=== PATIENT | female | born 1975 | race Native Hawaiian/Other Pacific Islander ===

== ENCOUNTER 2016-07-30 03:26 | Outpatient (CLI) | payer BC, MEDICAID ==
[2016-07-30 03:47] VITALS: BP 117/56
[2016-07-30] MEDS ORDERED: ALUM-MAG HYDROX-SIMETH 200-200-20MG/5ML PO ONE (04:10)
== END 2016-07-30 04:45 | disposition home or self-care (01) ==
LOC: TRG 03:26
PROVIDERS: ATTEND Obstetrics & Gynecology
DX: O09.523 Supervision of elderly multigravida, third trimester (principal); O26.893 Other specified pregnancy related conditions, third trimester; R10.9 Unspecified abdominal pain; Z3A.32 32 weeks gestation of pregnancy
CPT/HCPCS: 59025

== ENCOUNTER 2016-09-15 20:22 | Outpatient (CLI) | payer MEDICAID ==
[2016-09-15 21:15] VITALS: BP 113/67
[2016-09-15 22:05] LABS: Bilirubin,Urine NEG (Negative); Blood,Urine SM (Negative); Ketones,Urine NEG (Negative); Leukocyte Esterase,Urine NEG (Negative); Mucus,Urine FEW /HPF; Nitrite,Urine NEG (Negative); Urobilinogen,Urine < 2.0 mg/dL (<2.0)
--- NOTE | 2016-09-15 23:07 | Ultrasound Report ---
FINAL REPORT PROCEDURE: US OB LIMITED TECHNIQUE: Real-time limited sonographic examination was performed for evaluation of size, position, heartbeat, fluid volume for each fetus with image documentation (1 or more fetuses). CPT 39504 HISTORY: bleeding. . COMPARISON: No prior studies are available for comparison. FINDINGS: There is a single living intrauterine gestation visualized currently in the vertex presentation with a heart rate of 135 beats per minute. Subjectively the amount of amniotic fluid appears normal. The amniotic fluid index is normal measuring 10.6 centimeter. The placenta is located posterior and is grade 2. Visualized portion of the placenta shows no evidence of abruption. The internal cervical os was not demonstrated on this exam. The head obscures the cervix. If further evaluation of the cervical os is clinically indicated consider follow-up transvaginal scanning. Detailed exam of the fetus was not performed. Biophysical profile score was obtained yelling a score of 8/8. measurements were not obtained today. IMPRESSION: Single living intrauterine gestation currently visualize vertex presentation. Subjectively and by amniotic fluid index the amount of amniotic fluid appears normal. Grade 2 placenta is visualized posteriorly. Visualized portions of the placenta show no evidence of abruption. Please see above comments. Cervix was not visualized as it was obscured by the foetal head. Biophysical profile score was obtained yelling a score of 8/8. Further evaluation was neither requested nor performed.
--- NOTE | 2016-09-16 04:02 | Ultrasound Report ---
FINAL REPORT EXAM: US OB BPP W/O NON-STRESS HISTORY: Bleeding. TECHNIQUE: Directed limited transabdominal ultrasound examination of the gravid pelvis was performed. No prior studies are available for comparison. FINDINGS: The patient reports her last menstrual period 12/18/2015. There is a single live intrauterine gestation, in cephalic presentation. The placenta is located posteriorly. cardiac activity is identified, with a heart rate of 133 beats per minute. The amniotic fluid index measures 10.6 cm, within normal limits. The biophysical profile is 09/14. IMPRESSION: 1. Single live intrauterine gestation. 2. Biophysical profile 09/14.
== END 2016-09-15 22:45 | disposition home or self-care (01) ==
LOC: TRG 20:22
PROVIDERS: ATTEND Obstetrics & Gynecology
DX: O46.93 Antepartum hemorrhage, unspecified, third trimester (principal); Z3A.38 38 weeks gestation of pregnancy
CPT/HCPCS: 59025; 76815; 76819; 81001

== ENCOUNTER 2016-09-16 03:58 | Inpatient (IN) | payer MEDICAID ==
[2016-09-16] MEDS ORDERED: LACTATED RINGERS 1,000 ML ONE (05:08)
[2016-09-16] MEDS ORDERED: STADOL IV PRN (05:26)
[2016-09-16] MEDS ORDERED: PITOCin/NS 20 UNIT/1000ML DRIP 20 UNITS/1,000 ML BAG IV SCH ×2 (06:00→08:00)
[2016-09-16 06:02] LABS: Basophils % (Auto) 0.5 % (0.0-1.8); Eosinophils % (Auto) 1.7 % (0.0-4.3); Hematocrit 36.7 % (30.3-42.9); Hemoglobin 12.2 gm/dl (10.1-14.3); Mean Corpuscular HGB Conc 33 % (30-34); Mean Corpuscular Hemoglobin 30 pg (28-32); Mean Corpuscular Volume 91 fl (79-97); Platelet Count 131 K/mm3 (140-440); Red Blood Count 4.05 M/mm3 (3.65-5.03); Red Cell Distribution Width 14.3 % (13.2-15.2); White Blood Count 10.2 K/mm3 (4.5-11.0)
[2016-09-16 06:24] LABS: Alanine Aminotransferase 13 units/L (7-56); Lactate Dehydrogenase 203 units/L (91-180); Uric Acid 5.6 mg/dL (3.5-7.6)
[2016-09-16] MEDS: LACTATED RINGERS 1,000 ML IV SCH ×2 (06:36→07:46)
--- NOTE | 2016-09-16 07:26 | History and Physical Report ---
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 Review of chart however shows elevated blood pressure in the severe range. HELLP labs obtained shows thrombocytopenia, no UA available. Patient denies headache scotomata or epigastric pain. She is status post for her first delivery, followed by 2 successive successful VBACs. She had elevated blood pressure for her first , the subsequent 2 pregnancies were unremarkable. She claims to have been seeing a physician in between her pregnancies and no reported elevated blood pressure. course was unremarkable per patient, she passed her 1 hour GTT screening In triage, patient is said to be 4-5 cm dilated. 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 denies: smoking, alcohol abuse, prescription drug abuse, IV drug use - Obstetrical History Expected Date of Delivery: 09/23/16 Actual Gestation: 39 Week(s) 0 Day(s) : 4 Para: 3 Medications and Allergies Allergies Allergy/AdvReac Type Severity Reaction Status Date / Time No Known Allergies Allergy Verified 07/30/16 04:11 Home Medications Medication Instructions Recorded Confirmed Last Taken Type Vit-Fe Fumar-FA [ 1 tab PO QDAY 09/15/16 09/16/16 09/16/16 History Vitamin] Active Meds: Active Medications Butorphanol Tartrate (Stadol) 2 mg IV Q2H PRN PRN Reason: Labor Pain Last Admin: 09/16/16 06:24 Dose: 1 mg Hydralazine HCl (Apresoline) 5 mg IV Q30MIN PRN PRN Reason: Hypertension Lactated Ringer's (Lactated Ringers) 1,000 mls @ 125 mls/hr IV DIRECT BERNY Last Admin: 09/16/16 06:36 Dose: 125 mls/hr Oxytocin/Sodium Chloride (Pitocin/Ns 20 Unit/1000ml Drip) 20 units in 1,000 mls @ 0 mls/hr IV DIRECT BERNY PRN Reason: As Directed Magnesium Sulfate (Magnesium Sulfate 40gm/1000ml) 1,000 mls @ 50 mls/hr IV TITR NR PRN Reason: 2 GM/HR Magnesium Sulfate (Magnesium Sulfate 4gm/100ml) 4 gm in 100 mls @ 300 mls/hr IV ONCE ONE Stop: 09/16/16 07:49 Labetalol HCl (Normodyne) 200 mg PO BID BERNY Review of Systems Constitutional: no weight gain, no fever, no sweats, no chronic pain Ears, nose, mouth and throat: no headache Cardiovascular: high blood pressure, no chest pain, no syncope, no lightheadedness, no shortness of breath, no dyspnea on exertion, no paroxysmal nocturnal dyspnea Respiratory: no cough with sputum, no shortness of breath, no dyspnea on exertion Gastrointestinal: no abdominal pain, no nausea, no vomiting Genitourinary: no vaginal bleeding, no vaginal discharge, no leakage of fluid - Vital Signs Vital signs: Vital Signs Pulse BP Pulse Ox 63 140/80 99 09/16/16 04:09 09/16/16 04:09 09/16/16 04:09 Temp Pulse Resp BP Pulse Ox 97.6 F 74 20 189/94 98 09/16/16 04:12 09/16/16 07:15 09/16/16 04:12 09/16/16 07:14 09/16/16 07:15 - Physical Exam Cardiovascular: Regular rate, Normal S1, Normal S2 Lungs: Positive: Clear to auscultation, Normal air movement Abdomen: Positive: normal appearance, soft. Negative: distention, tenderness, guarding, rigidity Uterus: Positive: enlarged (EFW ~ 3800). Negative: tender Extremities: Positive: normal - Obstetrical FHR: category 1 Cervical Dilatation: 4.5 (Per RN) Results Result Diagrams: 09/16/16 05:25 09/16/16 05:25 Abnormal lab results 09/16/16 09/16/16 Range/Units 05:25 05:25 Plt Count 131 L (140-440) K/mm3 Pender % (Auto) 8.5 H (0.0-7.3) % Pender # 0.9 H (0.0-0.8) K/mm3 Seg Neutrophils % 70.1 H (40.0-70.0) % Creatinine 0.5 L (0.7-1.2) mg/dL Lactate Dehydrogenase 203 H (91-180) units/L All other labs normal. Assessment and Plan A: 40-year-old at 39 weeks in labor -Cat 1 tracing Issues -Severe range blood pressures ?Pre-E -Successful x 2 P: -Admit -Start magnesium, labetalol and IV antihypertensives -Will start augmentation -Epidural when necessary -Anticipate normal vaginal delivery - Patient Problems (1) 39 weeks gestation of Current Visit: Yes Status: Acute (2) Hypertension affecting in third trimester Current Visit: Yes Status: Acute (3) Active labor at term Current Visit: Yes Status: Acute
[2016-09-16] MEDS ORDERED: APRESOLINE IV PRN (07:30)
[2016-09-16] MEDS ORDERED: MAGNESIUM SULFATE 4GM/100ML 4 GM/100 ML BAG IV ONE (07:30)
[2016-09-16] MEDS ORDERED: ZOFRAN IV PRN (08:00)
[2016-09-16] MEDS ORDERED: ePHEDrine SULFATE IV PRN ×2 (08:00→09:11)
[2016-09-16] MEDS ORDERED: PITOCin/NS 30 UNIT/500ML 30 UNITS/500 ML BAG IV SCH ×2 (08:00)
[2016-09-16] MEDS ORDERED: SUBLIMAZE IV PRN (08:00)
[2016-09-16] MEDS ORDERED: XYLOCAINE 2% INFILTRATI ONE (08:00)
[2016-09-16] MEDS ORDERED: LACTATED RINGERS 1,000 ML IV SCH ×2 (08:00→23:00)
[2016-09-16] MEDS ORDERED: MINERAL OIL PO PRN (08:00)
[2016-09-16] MEDS ORDERED: MAGNESIUM SULFATE 40GM/1000ML 40 GM/1,000 ML BAG IV SCH ×2 (08:00→17:00)
[2016-09-16] MEDS ORDERED: POLYCILLIN/NS 2 GM/100 ML 2 GM/100 ML BAG IV ONE (08:30)
[2016-09-16] MEDS ORDERED: BRETHINE IVP PRN (08:30)
[2016-09-16] MEDS ORDERED: BRETHINE SUB-Q PRN (08:30)
--- NOTE | 2016-09-16 09:11 | Anesthesia Consultation ---
Anesthesia Consult and Med Hx Date of service: 09/16/16 - Airway Anesthetic Teeth Evaluation: Good ROM Head & Neck: Adequate Mental/Hyoid Distance: Adequate Intubation Access Assessment: Probably Good - Pre-Operative Health Status ASA Pre-Surgery Classification: ASA2 Proposed Anesthetic Plan: Epidural, Spinal - Pulmonary Hx Asthma: No COPD: No Hx Pneumonia: No - Cardiovascular System Hx Hypertension: No - Central Nervous System Hx Seizures: No Hx Psychiatric Problems: No - Endocrine Hx Renal Disease: No Hx End Stage Renal Disease: No Hx Hypothyroidism: No Hx Hyperthyroidism: No - Hematic Hx Anemia: No Hx Sickle Cell Disease: No - Other Systems Hx Alcohol Use: No
[2016-09-16] MEDS ORDERED: NARCAN 2 MG/2 ML IV PRN (09:30)
[2016-09-16] MEDS ORDERED: NORMODYNE PO SCH (10:00)
[2016-09-16] MEDS ORDERED: fentaNYL-BUPIV 2 MCG/ML-0.125% 200 MCG/100 ML BAG EPIDURAL SCH (10:00)
[2016-09-16] MEDS ORDERED: XYLOCAINE MPF 2% ONE (10:02)
--- NOTE | 2016-09-16 10:10 | Progress Note ---
Assessment and Plan A: IUP at 39 Weeks Category II Tracing Preeclampsia GBS Negative P: Continue MagSO4 Continue Pitocin Augmenation AROM Internals X2 Subjective - Subjective Date of service: 09/16/16 Patient reports: movement normal, contractions, other (Complains of only slight pain relief from epidural; Denies HAs, Visual changes, edema, and nausea. Complians of a slight amount of dizziness) Objective - Vital Signs Vital Signs: Vital Signs - 12hr 09/16/16 09/16/16 09/16/16 04:09 04:12 04:14 Temperature 97.6 F Pulse Rate 68 71 69 Respiratory 20 Rate Blood Pressure 140/80 140/80 142/82 O2 Sat by Pulse 99 98 98 Oximetry 09/16/16 09/16/16 09/16/16 04:19 04:25 04:26 Temperature Pulse Rate 71 71 69 Respiratory Rate Blood Pressure 161/79 O2 Sat by Pulse 96 99 Oximetry 09/16/16 09/16/16 09/16/16 04:30 04:44 04:56 Temperature Pulse Rate 71 68 68 Respiratory Rate Blood Pressure 177/80 164/76 O2 Sat by Pulse 96 Oximetry 09/16/16 09/16/16 09/16/16 05:06 05:15 06:08 Temperature Pulse Rate 68 67 67 Respiratory Rate Blood Pressure 151/70 144/71 167/80 O2 Sat by Pulse Oximetry 09/16/16 09/16/16 09/16/16 07:13 07:14 07:15 Temperature Pulse Rate 75 82 74 Respiratory Rate Blood Pressure 194/92 189/94 O2 Sat by Pulse 98 Oximetry 09/16/16 09/16/16 09/16/16 07:42 07:43 07:45 Temperature Pulse Rate 74 72 69 Respiratory Rate Blood Pressure 189/94 165/78 O2 Sat by Pulse 95 94 Oximetry 09/16/16 09/16/16 09/16/16 07:47 07:52 07:54 Temperature Pulse Rate 74 76 75 Respiratory Rate Blood Pressure 156/73 O2 Sat by Pulse 96 95 94 Oximetry 09/16/16 09/16/16 09/16/16 07:57 07:59 08:03 Temperature Pulse Rate 77 77 73 Respiratory Rate Blood Pressure 146/75 O2 Sat by Pulse 95 93 95 Oximetry 09/16/16 09/16/16 09/16/16 08:04 08:08 08:10 Temperature Pulse Rate 75 72 75 Respiratory Rate Blood Pressure 155/77 155/75 O2 Sat by Pulse 95 92 Oximetry 09/16/16 09/16/16 09/16/16 08:13 08:14 08:18 Temperature Pulse Rate 72 72 72 Respiratory Rate Blood Pressure 154/74 O2 Sat by Pulse 96 96 Oximetry 09/16/16 09/16/16 09/16/16 08:19 08:23 08:24 Temperature Pulse Rate 71 72 66 Respiratory Rate Blood Pressure 148/71 137/69 O2 Sat by Pulse 93 97 Oximetry 09/16/16 09/16/16 09/16/16 08:26 08:27 08:30 Temperature Pulse Rate 70 73 67 Respiratory Rate Blood Pressure 153/78 O2 Sat by Pulse 94 94 Oximetry 09/16/16 09/16/16 09/16/16 08:32 08:35 08:38 Temperature Pulse Rate 69 68 73 Respiratory Rate Blood Pressure 149/72 O2 Sat by Pulse 95 93 95 Oximetry 09/16/16 09/16/16 09/16/16 08:39 08:43 08:44 Temperature Pulse Rate 72 83 75 Respiratory Rate Blood Pressure 148/71 149/77 O2 Sat by Pulse 96 Oximetry 09/16/16 09/16/16 09/16/16 08:48 08:49 08:53 Temperature Pulse Rate 79 77 80 Respiratory Rate Blood Pressure 149/73 O2 Sat by Pulse 96 94 98 Oximetry 09/16/16 09/16/16 09/16/16 08:54 08:58 08:59 Temperature Pulse Rate 77 79 79 Respiratory Rate Blood Pressure 164/79 170/78 O2 Sat by Pulse 94 95 Oximetry 09/16/16 09/16/16 09/16/16 09:00 09:01 09:03 Temperature Pulse Rate 95 H 79 Respiratory Rate Blood Pressure 170/78 167/79 O2 Sat by Pulse 97 Oximetry 09/16/16 09/16/16 09/16/16 09:05 09:08 09:09 Temperature 97.5 F L Pulse Rate 74 75 76 Respiratory 18 Rate Blood Pressure 165/79 165/79 O2 Sat by Pulse 96 Oximetry 09/16/16 09/16/16 09/16/16 09:10 09:13 09:16 Temperature Pulse Rate 77 86 112 H Respiratory Rate Blood Pressure 173/82 188/88 O2 Sat by Pulse 96 Oximetry 09/16/16 09/16/16 09/16/16 09:18 09:19 09:23 Temperature Pulse Rate 113 H 103 H 94 H Respiratory Rate Blood Pressure 190/89 O2 Sat by Pulse 99 98 Oximetry 09/16/16 09/16/16 09/16/16 09:26 09:28 09:30 Temperature Pulse Rate 79 76 74 Respiratory Rate Blood Pressure 152/70 152/72 O2 Sat by Pulse 97 Oximetry 09/16/16 09/16/16 09/16/16 09:33 09:34 09:35 Temperature Pulse Rate 82 76 74 Respiratory Rate Blood Pressure 155/59 O2 Sat by Pulse 96 94 Oximetry 09/16/16 09/16/16 09/16/16 09:38 09:40 09:43 Temperature Pulse Rate 77 78 76 Respiratory Rate Blood Pressure 153/91 O2 Sat by Pulse 95 93 97 Oximetry 09/16/16 09/16/16 09/16/16 09:44 09:48 09:49 Temperature Pulse Rate 73 71 75 Respiratory Rate Blood Pressure 147/69 157/84 O2 Sat by Pulse 97 93 Oximetry 09/16/16 09/16/16 09/16/16 09:53 09:54 09:58 Temperature Pulse Rate 71 73 73 Respiratory Rate Blood Pressure 155/74 O2 Sat by Pulse 97 94 Oximetry 09/16/16 09/16/16 09:59 10:03 Temperature Pulse Rate 74 71 Respiratory Rate Blood Pressure 152/76 O2 Sat by Pulse 92 Oximetry - Exam Breasts: normal Cardiovascular: Regular rate Lungs: Clear to auscultation, Normal air movement Abdomen: Present: normal appearance, soft Uterus: Present: firm, fundal height above umbilicus FHR: category 2 FHR comments: FHR: 130, decreased varabilty, -accels, +early decels, CTX q 3 Uterine Contraction Monitor Mode: External Cervical Dilatation: 7.5 (Moderate amount of dark green meconium stained fluids upon AROM at 0954) Cervical Effacement Percentage: 90 station: -2 Uterine Contraction Duration: 3 Uterine Contraction Pattern: Regular Uterine Tone Measurement Phase: Resting Uterine Contraction Intensity: Moderate Extremities: normal - Labs Labs: Abnormal Labs 09/16/16 09/16/16 05:25 05:25 Plt Count 131 L [place] % (Auto) 8.5 H [place] # 0.9 H Seg Neutrophils % 70.1 H Creatinine 0.5 L Lactate Dehydrogenase 203 H Laboratory Results - last 24 hr 09/16/16 09/16/16 09/16/16 05:25 05:25 05:25 WBC 10.2 RBC 4.05 Hgb 12.2 Hct 36.7 MCV 91 MCH 30 MCHC 33 RDW 14.3 Plt Count 131 L Lymph % (Auto) 19.2 [place] % (Auto) 8.5 H Eos % (Auto) 1.7 Baso % (Auto) 0.5 Lymph # 2.0 [place] # 0.9 H Eos # 0.2 Baso # 0.1 Seg Neutrophils % 70.1 H Seg Neutrophils # 7.1 Creatinine 0.5 L Estimated GFR > 60 Uric Acid 5.6 AST 23 ALT 13 Lactate Dehydrogenase 203 H Blood Type O POSITIVE Antibody Screen Negative
[2016-09-16] MEDS ORDERED: CYTOTEC ONE (11:06)
[2016-09-16] MEDS ORDERED: TUCKS PAD TP PRN (11:18)
[2016-09-16] MEDS ORDERED: LANSINOH TP PRN (11:18)
[2016-09-16] MEDS ORDERED: MILK OF MAGNESIA PO PRN (11:18)
[2016-09-16] MEDS ORDERED: BENADRYL PO PRN (11:18)
[2016-09-16] MEDS ORDERED: NORCO 5/325 PO PRN (11:18)
--- NOTE | 2016-09-16 11:30 | Procedure Note ---
OB Delivery Note - Delivery Date of Delivery: 09/16/16 (1103) Surgeon: MEAGHAN DOUGLAS Estimated blood loss: 300cc - Vaginal Delivery presentation: vertex Delivery position: OA Intrapartum events: meconium, preeclampsia Delivery induction: none Delivery augmentation: rupture of membranes, pitocin Delivery monitor: internal FHT, internal uterine Route of delivery: Delivery placenta: spontaneous Delivery cord: nuchal cord, 3 umbilical vessels Episiotomy: none Delivery laceration: none Anesthesia: epidural Delivery comments: of a live 8'3" male infant over a intact pernieum under epidural anesthesia with Apgars of 6 and 8 at 1103 on 09/16/2016. Very tight nuchal cord x 1 that avusled upon manual reduction, infant not stimulated, and handed directly to awaiting NICU/RESP team due to meconium stained fluids. Cord clamped immediately upon delivery to warmer. Spontaneous delivery of placenta complete and intact with Jay side presenting at 1108. Fundus is firm and midline located 4 below the U. Lochia is scant. Cord blood collected; Placenta discarded. - Infant A at 1 minute: 6 at 5 minutes: 8 Infant Gender: Male (8'3")
[2016-09-16] MEDS ORDERED: SODIUM CHLORIDE FLUSH SYRINGE 10 ML IV NR (12:00)
[2016-09-16] MEDS ORDERED: POLYCILLIN/NS 1 GM/50 ML 1 GM/50 ML BAG IV SCH (13:00)
[2016-09-16] MEDS ORDERED: METHERGINE IM ONE (17:41)
[2016-09-16] MEDS: METHERGINE PO SCH (21:42)
[2016-09-16] MEDS: COLACE PO SCH (21:43)
[2016-09-16 23:55] LABS: Hematocrit 31.7 % (30.3-42.9); Hemoglobin 10.5 gm/dl (10.1-14.3)
[2016-09-17] MEDS: METHERGINE PO SCH ×3 (05:25→21:08)
--- NOTE | 2016-09-17 09:58 | Progress Note ---
Assessment and Plan O: BP WNL on mag A: PPD #1 - stable P: D/C mag today and watch BP Probable D/C in am Subjective - Subjective Date of service: 09/17/16 Principal diagnosis: Patient reports: appetite normal [place]: doing well Objective - Vital Signs Latest vital signs: Vital Signs Temp Pulse Resp BP Pulse Ox 09/17/16 07:54 98.2 F 70 20 120/70 09/17/16 06:19 98.1 F 76 20 142/73 09/17/16 04:15 98.4 F 67 20 131/69 09/17/16 02:11 98.0 F 62 18 138/62 09/17/16 00:00 98.4 F 72 20 140/70 09/16/16 22:10 98.6 F 88 20 148/73 09/16/16 20:20 98.4 F 76 18 150/74 09/16/16 17:50 18 09/16/16 16:45 98.7 F 78 18 137/65 09/16/16 13:20 98.5 F 76 20 127/71 09/16/16 12:39 70 145/81 09/16/16 12:24 87 113/82 09/16/16 12:08 78 134/66 09/16/16 11:53 71 142/72 09/16/16 11:39 77 151/68 09/16/16 11:27 84 173/79 09/16/16 11:19 90 130/66 09/16/16 11:14 82 142/73 09/16/16 11:09 76 133/62 09/16/16 11:04 80 153/70 09/16/16 11:00 89 162/75 09/16/16 10:54 82 139/79 09/16/16 10:53 81 97 09/16/16 10:49 81 121/59 94 09/16/16 10:48 67 95 09/16/16 10:44 65 121/61 09/16/16 10:43 71 94 09/16/16 10:39 65 124/60 09/16/16 10:38 65 95 09/16/16 10:37 63 94 09/16/16 10:34 68 109/58 09/16/16 10:33 74 97 09/16/16 10:29 72 134/65 09/16/16 10:28 72 96 09/16/16 10:25 66 137/66 94 09/16/16 10:23 69 96 09/16/16 10:19 76 136/85 09/16/16 10:18 74 94 09/16/16 10:14 76 136/72 09/16/16 10:13 72 94 09/16/16 10:09 73 134/70 09/16/16 10:08 75 95 09/16/16 10:07 71 93 09/16/16 10:04 71 137/67 09/16/16 10:03 71 92 09/16/16 09:59 74 152/76 09/16/16 09:58 73 94 Intake and Output 09/16/16 09/17/16 09/17/16 22:59 06:59 14:59 Intake Total 980 Output Total 0026 029 9386 Balance -320 -800 -1300 Intake: IV 500 MAGNESIUM SULFATE 40GM/ 200 1000ML 40 gm In 1,000 ml @ 2 GM/HR 50 mls/hr IV DIRECT BERNY Rx#:[id number] PITOCin/NS 20 UNIT/1000ML 300 DRIP 20 units In 1,000 ml @ 125 mls/hr IV DIRECT BERNY Rx#:[id number] Oral 480 Output: Urine 3327 236 5482 Indwelling Catheter 0625 238 2167 Other: Total, Intake Amount 240 Total, Output Amount 334 523 4436 - Exam Breasts: Present: deferred Cardiovascular: Present: Regular rate Lungs: Present: Clear to auscultation Abdomen: Present: soft Vulva: both: normal Uterus: Present: fundal height below umbilicus Extremities: Present: normal Deep Tendon Reflex Grade: Normal +2 - Labs Labs: Abnormal lab results 09/16/16 09/16/16 Range/Units 12:14 23:37 Magnesium 3.90 H 4.40 H (1.7-2.3) mg/dL
[2016-09-17] MEDS: PRENATAL VITAMIN PO SCH (11:06)
[2016-09-17] MEDS: COLACE PO SCH ×2 (11:06→21:08)
--- NOTE | 2016-09-17 11:18 | Progress Note ---
Subjective Date of service: 09/16/16 Principal diagnosis: Interval history: Patient states she has not been able to ambulate yet. No residual weakness. Denies back pain. No anesthesia complications. Epidural catheter has not been removed yet. Objective - Constitutional Vitals: Vital Signs - 12hr 09/17/16 09/17/16 09/17/16 00:00 02:11 04:15 Temperature 98.4 F 98.0 F 98.4 F Pulse Rate 72 62 67 Respiratory 20 18 20 Rate Blood Pressure 140/70 138/62 131/69 09/17/16 09/17/16 06:19 07:54 Temperature 98.1 F 98.2 F Pulse Rate 76 70 Respiratory 20 20 Rate Blood Pressure 142/73 120/70 - Labs CBC & Chem 7: 09/16/16 23:37 09/16/16 05:25 Labs: Abnormal lab results 09/16/16 09/16/16 Range/Units 12:14 23:37 Magnesium 3.90 H 4.40 H (1.7-2.3) mg/dL
--- NOTE | 2016-09-18 08:55 | Progress Note ---
Assessment and Plan A: day 2. Hypertension, now well controlled. . P: Plan discharge to home today. Advised patient regarding BP warning signs and warnng signs. See discharge summary. Subjective - Subjective Date of service: 09/18/16 Principal diagnosis: Interval history: Pt. is doing well. She desires discharge today. Patient is without difficulty. She is tolerating a regular diet without nausea or vomiting. Patient denies headache, visual disturbance, swelling, chest pain, cough, SOB, abdominal pain, leg pain, heavy vaginal bleeding, or signs of depression. Patient wants to use condoms for control . Patient reports: movement normal, contractions, other (Complains of only slight pain relief from epidural; Denies HAs, Visual changes, edema, and nausea. Complians of a slight amount of dizziness) Objective - Vital Signs Vital Signs: Vital Signs - 12hr 09/18/16 00:50 Temperature 98 F Pulse Rate 73 Respiratory 20 Rate Blood Pressure 132/70 - Exam Breasts: deferred Cardiovascular: Regular rate, No murmurs Lungs: Clear to auscultation Abdomen: Present: normal appearance, soft, normal bowel sounds. Absent: distention, tenderness, guarding Uterus: Present: normal, firm, fundal height below umbilicus - Labs Labs: Abnormal Labs 09/16/16 09/16/16 09/16/16 05:25 05:25 12:14 Plt Count 131 L Dickens % (Auto) 8.5 H Dickens # 0.9 H Seg Neutrophils % 70.1 H Creatinine 0.5 L Magnesium 3.90 H Lactate Dehydrogenase 203 H 09/16/16 23:37 Plt Count Dickens % (Auto) Dickens # Seg Neutrophils % Creatinine Magnesium 4.40 H Lactate Dehydrogenase
--- NOTE | 2016-09-18 09:05 | Discharge Summary ---
Providers - Providers Date of Admission: 09/16/16 06:24 Date of discharge: 09/18/16 Attending physician: PRICILLA BELL MD None Primary care physician: PRICILLA BELL MD Hospitalization Delivery: Incision: normal Other procedures: none complications: none Discharge diagnosis: IUP at term delivered baby: female Disposition: DC-01 TO HOME OR SELFCARE Plan - Provider Discharge Summary Activity: no sex for 6 weeks, no heavy lifting 4 weeks, no strenuous exercise Diet: routine Instructions: routine Additional instructions: [] Smoking cessation referral if applicable(refer to patient education folder for contact #) [] Refer to [facility] Call your doctor immediately for: * Fever > 100.5 * Heavy vaginal bleeding ( >1 pad per hour) * Severe persistent headache * Shortness of breath * Reddened, hot, painful area to leg or breast * Drainage or odor from incision. * Keep incision clean and dry at all times and follow doctor's instructions regarding bathing/showering - Follow up plan Follow up: PRICILLA SIFUENTES MD [Primary Care Provider] - 7 Days Pending Studies Plan: Discharge patient to home later this afternoon. Advised patient she is to return to [facility] for a blood pressure check on Tuesday or Tuesday. BP warning signs discussed with patient in detail.
[2016-09-18] MEDS: COLACE PO SCH (10:10)
[2016-09-18] MEDS: PRENATAL VITAMIN PO SCH (10:10)
[2016-09-18 16:33] VITALS: BP 130/65
== END 2016-09-18 23:06 | disposition home or self-care (01) | DRG 774 ==
LOC: TRG 03:58 → LD 06:24 → TRG 06:24 → OB 14:00
PROVIDERS: ADMIT Obstetrics & Gynecology; ATTEND Obstetrics & Gynecology
PROC: 00HU33Z Insertion of Infusion Device into Spinal Canal, Percutaneous Approach (ICD-10-PCS; principal; 2016-09-16)
PROC: 10E0XZZ Delivery of Products of Conception, External Approach (ICD-10-PCS; principal; 2016-09-16)
PROC: 3E0R3CZ (ICD-10-PCS; principal; 2016-09-16)
DX: O69.1XX0 Labor and delivery complicated by cord around neck, with compression, not applicable or unspecified (principal); O11.4 Pre-existing hypertension with pre-eclampsia, complicating childbirth; O77.0 Labor and delivery complicated by meconium in amniotic fluid; O34.211 Maternal care for low transverse scar from previous cesarean delivery; Z3A.39 39 weeks gestation of pregnancy; Z37.0 Single live birth; O09.523 Supervision of elderly multigravida, third trimester
CPT/HCPCS: 36415; 82565; 83615; 83735; 84450; 84460; 84550; 85014; 85018; 85025; 86850; 86900; 86901; 99211; A6250; G0463; J0290; J0360; J0595; J2210; J2590; J3475; J7120

== ENCOUNTER 2018-03-07 09:35 | Outpatient (CLI) | payer OTHER ==
--- NOTE | 2018-03-07 10:19 | Mammography Report ---
Bilateral mammogram: No previous studies available. CAD study utilized. Findings: Predominance adipose tissue bilaterally. No distinct mass or microcalcification. Normal axilla. Impression: Benign findings. Annual followup recommended. BI-RADS CATEGORY: 2 = Benign ACR BI-RADS MAMMOGRAPHIC CODES: 0 = Needs additional imaging evaluation; 1 = Negative; 2 = Benign; 3 = Probably benign; 4 = Suspicious; 5 = Malignant; 6 = Known biopsy-proven malignancy COMMENT: 1. Dense breast tissue, i.e., adenosis, fibrocystic changes, etc., may obscure an underlying neoplasm. 2. Approximately 10% of cancers are not detected with mammography. 3. A negative mammography report should not delay biopsy if a clinically suspicious mass is present. COMMENT: Patient follow-up letters are generated in [employer].
== END 2018-03-07 09:36 | disposition home or self-care (01) ==
LOC: MAMMO 09:35
PROVIDERS: ATTEND Internal Medicine
DX: Z12.31 Encounter for screening mammogram for malignant neoplasm of breast (principal)
CPT/HCPCS: 77067